=== PATIENT | female | born 1965 | race American Indian/Alaskan Native ===

== ENCOUNTER 2019-05-12 10:57 | Day surgery (SDC) | payer OTHER ==
[~2019-05-12] VITALS: Ht 165.1 cm; Wt 125.2 kg
[~2019-05-12 10:57] MED LIST: ALBU90OI INH; CEFD300 PO; Flovent 110 MCG12 GM INH; LEVFLO500 PO; METF500C PO; PROAIR RESPICL90 MCG IH; PROAIR RESPICL90 MCG INH
== END 2019-05-12 14:12 | disposition home or self-care (01) ==
LOC: ORSCSDS 10:57
PROVIDERS: Internal Medicine Gastroenterology
PROC: 0DBL8ZX Excision of Transverse Colon, Via Natural or Artificial Opening Endoscopic, Diagnostic (ICD-10-PCS; principal; 2019-05-12 12:30)
PROC: 0DBN8ZX Excision of Sigmoid Colon, Via Natural or Artificial Opening Endoscopic, Diagnostic (ICD-10-PCS; principal; 2019-05-12 12:30)
DX: R93.3 Abnormal findings on diagnostic imaging of other parts of digestive tract (principal); D12.3 Benign neoplasm of transverse colon; K63.5 Polyp of colon; K64.8 Other hemorrhoids; E11.9 Type 2 diabetes mellitus without complications; G47.33 Obstructive sleep apnea (adult) (pediatric); J44.9 Chronic obstructive pulmonary disease, unspecified; Z87.891 Personal history of nicotine dependence; E66.01 Morbid (severe) obesity due to excess calories; Z68.42 Body mass index [BMI] 45.0-49.9, adult; Z79.899 Other long term (current) drug therapy; Z79.84 Long term (current) use of oral hypoglycemic drugs
CPT/HCPCS: 82947; 88305; J2001; J2704; J7120